=== PATIENT | male | born 1975 | race Caucasian/White ===

== ENCOUNTER 2017-08-25 22:36 | Observation (INO) | payer OTHER ==
[~2017-08-25] VITALS: Ht 172.7 cm; Wt 91.8 kg
[2017-08-26] VITALS (12 sets, daily range): BP systolic 100–136; BP diastolic 60–82; PULSE 68–81; TEMP 36.3–36.9; O2SAT 91–97; Ht 172.7 cm; Wt 91.8 kg
[2017-08-26] MEDS ORDERED: LORAZEPAM 2 MG/ML 1 ML VIAL IV PRN (01:45)
[2017-08-26] MEDS ORDERED: PROCHLORPERAZINE INJ 5 MG in SYRINGE 4 ML IV PRN (01:45)
[2017-08-26] MEDS ORDERED: GLUCOSE 40% GEL 15 GM TUBE PO PRN (01:45)
[2017-08-26] MEDS ORDERED: TRAMADOL HCL 50 MG TAB PO PRN (01:45)
[2017-08-26] MEDS ORDERED: GLUCOSE 10 TABS/TUBE PO PRN (01:45)
[2017-08-26] MEDS ORDERED: GLUCAGON FOR INJ 1 MG VIAL SQ PRN (01:45)
[2017-08-26] MEDS ORDERED: DEXTROSE 50% 50 ML SYR IV PRN (01:45)
[2017-08-26] MEDS ORDERED: LACTATED RINGER'S 1000ML 1,000 ML IV SCH (01:45)
[2017-08-26] MEDS ORDERED: ACETAMINOPHEN 325 MG TAB PO PRN (01:45)
[2017-08-26] MEDS ORDERED: ENOXAPARIN 40 MG/0.4 ML SYR SQ SCH (01:45)
[2017-08-26] MEDS ORDERED: GLIM4TAB2 PO (01:51)
[2017-08-26] MEDS ORDERED: NAPR1TAB9 PO (01:51)
[2017-08-26] MEDS ORDERED: GLIP10TA9 PO (01:53)
[2017-08-26] MEDS ORDERED: METF500T5 PO (01:54)
[2017-08-26] MEDS ORDERED: LSN25 PO (01:54)
[2017-08-26] MEDS ORDERED: TRMCR130WC TOP (01:55)
[2017-08-26] MEDS ORDERED: SITA100T3 PO (01:55)
[2017-08-26] MEDS ORDERED: PATIENT'S HEIGHT AND/OR WEIGHT NEEDED SCH (02:00)
[2017-08-26] MEDS ORDERED: INSULIN ASPART 100 UNITS/ML 3 ML PEN SC ONE (02:00)
[2017-08-26] MEDS ORDERED: LORAZEPAM INJ 0.5 MG in SYRINGE 0.75 ML IV PRN (02:00)
[2017-08-26] MEDS ORDERED: MAGNESIUM SULFATE 1GM / D5W 1 GM in PREMIXED IN D5W 100 ML IV ONE (02:00)
[2017-08-26] MEDS ORDERED: IV FLUIDS COMPLETED PRN (03:30)
--- NOTE | 2017-08-26 03:47 | Surgery Consultation ---
Consultation Date of Consultation: Aug 26, 2017. Attending Physician: Nasir Tamez M.D. Reason for Consultation: Appendicitis History of Present Illness Patient is a 41M who presents to [facility] on direct admission from [facility] due to abdominal pain starting yesterday 08/25/17 at 0600. Patient states the pain began in the left side of his abdomen and he has had associated nausea as well. Denies vomiting. Reports he now has pain in his RLQ as well as his LUQ. Reports he has had on and off fevers as well since the onset of his pain. He has been moving his bowels and urinating without issue. He was transferred to this facility due to a WBC count of 19.[address] findings showing a dilated appendix at 1.3 cm and mild inflammatory changes, no abscess or perforation. CT also showed findings of moderate to severe fecal retention in his colon without free air, free fluid or dilated small bowel loops. Fecal retention could be contributing to his left sided pain. PSHx significant for tonsillectomy. Denies any other surgeries in the past. He is a diabetic but denies any other medical issues. He last ate yesterday morning without issue. Denies use of any blood thinning or anticoagulant medications. Patient did receive a dose of antibiotics at [facility] at 11pm 08/25/17. Social History Smoking Status: Unknown if Ever Smoked Allergies Coded Allergies: BEE STING (Verified Allergy, Unknown, ANAPHYLAXIS, 08/26/17) Hydromorphone (Verified Adverse Reaction, Mild, 0, 08/26/17) nv Home Medications Scheduled Glimepiride (Glimepiride), 1 TAB PO DAILY Glipizide (Glucotrol), 10 MG PO BID Lisinopril (Lisinopril), 2.5 MG PO DAILY Metformin Hcl Er (Glucophage Er), 2 TAB PO DAILY Naproxen (Aleve), 220 MG PO DAILY Sitagliptin Phosphate (Januvia), 100 MG PO DAILY Triamcinolone Acet (Aristocort 0.1%), 1 APPLN TOP BID Current Inpatient Medications Current Inpatient Medications Medications (Trade) Dose Ordered Sig/Yudi Route Start Time Stop Time Status Last Admin Dose Admin Enoxaparin Sodium (Lovenox Inj) 40 mg Q24H SQ 08/26/17 01:45 09/25/17 01:44 UNV Acetaminophen (Tylenol Tab) 650 mg Q4H PRN PO 08/26/17 01:45 09/25/17 01:44 Tramadol HCl (Ultram Tab) not relieved by tylenol @ Q6H PRN PO 08/26/17 01:45 09/25/17 01:44 Prochlorperazine Edisylate 5 mg/ Syringe 5 ml @ 5 mls/min Q6H PRN IV 08/26/17 01:45 09/25/17 01:44 Morphine Sulfate (MoRPHine SULFATE INJ) 4 mg Q6H PRN IV 08/26/17 01:45 09/09/17 01:44 Lorazepam (Ativan Inj) 0.5 mg Q4H PRN IV 08/26/17 01:45 09/25/17 01:44 Lactated Ringer's 1,000 ml @ 75 mls/hr [id number] IV 08/26/17 01:45 09/25/17 01:44 08/26/17 02:27 75 MLS/HR Insulin Aspart (novoLOG ASPART) SLIDING SCALE If C... ACHS SC 08/26/17 06:30 09/25/17 06:29 Glucose (Glucose 40% Gel) 15-30 GRAMS 15 GRAMS... UD PRN PO 08/26/17 01:45 09/25/17 01:44 Glucose (Glucose Chew Tab) 4-8 Tablets 4 Tabl... UD PRN PO 08/26/17 01:45 09/25/17 01:44 Dextrose (Dextrose 50% 50ML Syringe) 25-50ML OF 50% DW IV FOR... UD PRN IV 08/26/17 01:45 09/25/17 01:44 Glucagon (Glucagon Inj) 1 mg UD PRN SQ 08/26/17 01:45 09/25/17 01:44 Lorazepam 0.5 mg/ Syringe 1 ml @ 1 mls/min Q4H PRN IV 08/26/17 02:00 09/25/17 01:59 Miscellaneous Information (Patient'S Height And/Or Weight Needed) 1 ea Q2H N/A 08/26/17 02:00 09/25/17 01:59 Miscellaneous (Iv Fluids Completed) 1 ea PRN PRN N/A 08/26/17 03:30 08/26/18 03:29 UNV Review of Systems Constitutional: + fever, No chills Respiratory: No cough, No shortness of breath Cardiovascular: No chest pain Abdomen: + pain (LUQ, RLQ), + nausea, No vomiting, No diarrhea, No constipation Genitourinary - Male: No hematuria, No dysuria Integumentary: No new/changing skin lesions, No color change Physical Exam Date Time Temp Pulse Resp B/P (MAP) Pulse Ox O2 Delivery O2 Flow Rate FiO2 08/26/17 01:57 36.3 81 18 116/75 Room Air 08/26/17 00:30 36.3 81 18 116/75 (89) 97 Room Air patient resting in bed with at bedside. General Appearance: WD/WN, no apparent distress Head: normocephalic, atraumatic ENT: hearing grossly normal Neck: trachea midline Respiratory/Chest: lungs clear, no respiratory distress, no accessory muscle use Cardiovascular: regular rate, rhythm, no gallop, no murmur Abdomen/GI: soft, no organomegaly, no pulsatile mass, + tenderness (moderate TTP in LUQ and RLQ. Mild TTP in LLQ) Neurologic/Psych: alert, normal mood/affect, oriented x 3 Skin: normal color, warm/dry Laboratory Results Last 24 Hours Test 08/26/17 02:05 Bedside Glucose 158 mg/dl Assessment & Plan Appendicitis Source of pain most likely due to appendicitis given elevated white count, RLQ pain and dilated appendix with mild inflammatory changes on CT. Plan for laparoscopic appendectomy, possible open with Dr. Ghosh in the OR this AM. Risks, benefits, alternatives to the procedure were discussed with the patient - all questions answered. NPO, IV Fluids, IV Mefoxin 2g Q6H first dose at 0500, pain medication prn, zofran prn, SCDs. OR Notified. Please contact with questions or concerns.
[2017-08-26] MEDS ORDERED: ONDANSETRON INJ 2 MG/ML 2 ML VIAL IV PRN ×3 (04:00→12:15)
[2017-08-26] MEDS ORDERED: CEFOXITIN IV 2,000 MG in DEXTROSE 5% 50ML 50 ML IV SCH (05:00)
[2017-08-26 06:06] LABS: BASO % 0.4 %; BASO ABS # 0.06 K/uL (0-0.2); EOS % 0.6 %; EOS ABS # 0.09 K/uL (0-0.5); HEMATOCRIT 38.2 % (42-52); HEMOGLOBIN 13.5 g/dL (14.0-18.0); IG# 0.05 K/uL (0.00-0.02); LYMPH % 20.5 %; LYMPH ABS # 3.17 K/uL (1.2-3.4); MEAN CELL VOLUME 85.5 fL (80-100); MEAN CORPUSCULAR HEMOGLOBIN 30.2 pg (25-34); MEAN CORPUSCULAR HGB CONC 35.3 g/dl (32-36); MEAN PLATELET VOLUME 9.8 fL (7.4-10.4); MONO ABS # 0.92 K/uL (0.11-0.59); NEUT % 72.2 %; NEUT ABS # 11.14 K/uL (1.4-6.5); PLATELET COUNT 214 K/uL (130-400); RED CELL DISTRIBUTION WIDTH CV 12.7 % (11.5-14.5); RED CELL DISTRIBUTION WIDTH SD 39.4 fL (36.4-46.3); WHITE BLOOD COUNT 15.43 K/uL (4.8-10.8)
[2017-08-26] MEDS: MoRPHine SULFATE 4 MG/ML 1 ML CARP\\VIAL IV PRN ×2 (06:27→13:19)
[2017-08-26 06:29] LABS: CALCIUM 8.7 mg/dl (8.5-10.1); CREATININE 1.25 mg/dl (0.60-1.40); POTASSIUM 3.9 mmol/L (3.5-5.1)
--- NOTE | 2017-08-26 06:29 | HISTORY & PHYSICAL EXAMINATION ---
DATE OF ADMISSION: 08/26/2017 CHIEF COMPLAINT: abdominal pain. HISTORY OF PRESENT ILLNESS: History obtained from the patient and records. Medical history significant for DM2 on oral meds, HTN. Yesterday morning, the patient woke up with achy left-sided abdominal pain, some nausea. No vomiting. Some chills. Patient seen at [facility]. Initial CT abdomen and pelvis showed borderline dilated appendix, minimal surrounding inflammatory change, possible appendicitis. Patient later on noticed pain going to the right side. Patient received Invanz at [facility]. Patient requested transfer to [facility] for surgical evaluation. MEDICAL HISTORY: As above. SURGERIES: Tonsillectomy. HOME MEDICATIONS: Include glimepiride and metformin. ALLERGIES: BEE STINGS. FAMILY HISTORY: History of diabetes. PERSONAL AND SOCIAL HISTORY: Nonsmoker. Occasional alcohol beverage intake, light truck driver REVIEW OF SYSTEMS: As per HPI, all 10 systems reviewed. All other ROS negative. PHYSICAL EXAMINATION: VITAL SIGNS: Blood pressure was noted to be 116/78, pulse 81, RR 18, temperature 36.3, and sats 97 on room air. GENERAL: Noted to be comfortable, no respiratory distress, obese. SKIN: Normal color, warm. HEENT: [place] palpebral conjunctivae. No ptosis. Dry mucosa. NECK: Short, nontender. CHEST: Decreased effort. No tenderness. HEART: Regular rate and rhythm. No murmur. ABDOMEN: Hypogastric tenderness. Some distention. EXTREMITIES: No edema. No gross deformity. No tenderness NEUROLOGIC: Coherent, no gross focality. LABORATORY DATA: From [facility], 08/25/2017, hemoglobin 15, hematocrit 45, white cell count 19, and platelets 271. Sodium 147, potassium 4, chloride 99, CO2 of 29, BUN 50, creatinine 0.9, and glucose 158. Mag was 1.7. Hemoglobin A1c June 2017 was noted to be 9. UA, ketones ASSESSMENT: 1. Abdominal pain possible appendicitis on initial CT. No sepsis. 2. Hypertension, stable. Not on meds currently. JERMAN inhibitor recommended by PCP as per outpatient records. 3. DM2, on oral meds suboptimal control as of recent A1c. 4. Hypomagnesemia. PLAN: Observation. GMF analgesia. N.p.o. sips until seen by Surgery. replace mag. ISS BG goal 140-180. May need basal insulin to attain goal. DVT prophylaxis, Lovenox subQ. Full code. MTDD
[2017-08-26] MEDS: INSULIN ASPART 100 UNITS/ML 3 ML PEN SC SCH ×4 (06:30→20:45)
[2017-08-26] MEDS ORDERED: LISINOPRIL 2.5 MG TAB PO SCH (08:00)
[2017-08-26] MEDS ORDERED: LABETALOL HCL IV 5 MG/ML 20ML IV PRN (09:00)
[2017-08-26] MEDS ORDERED: FLUMAZENIL 0.1 MG/1 ML 10 ML VIAL IV PRN (09:00)
[2017-08-26] MEDS ORDERED: PHENYLEPHRINE 100MCG/ML 5ML SYR IV PRN (09:00)
[2017-08-26] MEDS ORDERED: FENTANYL CITRATE INJ 50 MCG/1 ML 2 ML VIAL IV PRN (09:00)
[2017-08-26] MEDS ORDERED: EpHEDrine SULFATE INJ 50 MG/ML AMP IV PRN (09:00)
[2017-08-26] MEDS ORDERED: MEPERIDINE HCL 25 MG/ML CARP IV PRN (09:00)
[2017-08-26] MEDS ORDERED: HYDROmorphone INJ 2 MG/ML SYR/VIAL IV PRN (09:00)
[2017-08-26] MEDS ORDERED: ATROPINE SULFATE 0.1 MG/ML 5ML SYR IV PRN (09:00)
[2017-08-26] MEDS ORDERED: NALOXONE HCL 0.4 MG/1 ML VIAL/CARP IV PRN (09:00)
[2017-08-26] MEDS ORDERED: FENTANYL CITRATE INJ 50 MCG/1 ML 2 ML VIAL ONE ×2 (09:18→11:15)
[2017-08-26] MEDS ORDERED: MIDAZOLAM HCL 1 MG/ML 2ML VIAL ONE (09:18)
[2017-08-26] MEDS ORDERED: BUPIVACAINE/EPINEPHRINE 0.5% MPF 1:200,000 30 ML VIAL ONE (10:00)
[2017-08-26] MEDS ORDERED: CEFAZOLIN SOD 2000MG/15 ML IV PUSH IV ONE (10:34)
--- NOTE | 2017-08-26 10:39 | History & Physical Bridge Note ---
H&P Re-Evaluation Bridge Note: I have examined the patient, reviewed the History & Physical and in the interval since the performance of the History & Physical I have noted the following changes of clinical significance: No changes noted. pt seen/chart reviewed. suspect he does have appendicitis. the pain has now fully localized the RLQ. discussed options/risks ( bleeding/infection/leaks/dvt/pe/injury to other organs etc..). questions answered. ok to proceed.
[2017-08-26] MEDS ORDERED: GLYCOPYRROLATE INJ 0.2 MG/ML VIAL ONE ×2 (11:35→11:45)
[2017-08-26] MEDS ORDERED: PROPOFOL IV EMULSION 10 MG/ML 20 ML VIAL IV ONE (11:35)
[2017-08-26] MEDS ORDERED: LIDOCAINE HCL 2% 2 ML VIAL (20MG/ML) ONE (11:35)
[2017-08-26] MEDS ORDERED: ONDANSETRON INJ 2 MG/ML 2 ML VIAL ONE (11:35)
[2017-08-26] MEDS ORDERED: DEXAMETHASONE SOD INJ 4 MG/ML VIAL ONE (11:35)
[2017-08-26] MEDS ORDERED: NEOSTIGMINE METHYLSULFATE 5 MG/5 ML SYR ONE (11:35)
[2017-08-26] MEDS ORDERED: ROCURONIUM BROMIDE 10 MG/ML 5 ML VIAL IV ONE (11:35)
[2017-08-26] MEDS ORDERED: KETOROLAC TROMETHAMINE 30 MG/ML VIAL ONE (11:39)
--- NOTE | 2017-08-26 11:41 | [facility] Post Operative Brief Note ---
Immediate Operative Summary Operative Date Aug 26, 2017. Pre-Operative Diagnosis Acute appendicitis Post-Operative Diagnosis Same as preop Procedure(s) Performed Laparoscopic Appendectomy Surgeon Dr. Ghosh Math Specialist Surgeon(s) Ekaterina Nguyen PA-C Estimated Blood Loss 5 cc Findings Consistent with Post-Op Diagnosis Specimens A: appendix Anesthesia Type General
--- NOTE | 2017-08-26 11:51 | [facility] Operative Report ---
Operative Report Operative Date Aug 26, 2017. Pre-Operative Diagnosis Acute appendicitis Post-Operative Diagnosis Same as preop Procedure(s) Performed Laparoscopic Appendectomy Surgeon Dr. Ghosh Customer Security Clerk Surgeon(s) Ekaterina Ngyuen PA-C Estimated Blood Loss 5 cc Specimens A: appendix Anesthesia Type General Description of Procedure After informed consent was obtained the patient was taken to the operating room and placed in supine position. After successful intubation a Serra catheter was placed and the left arm was tucked. A Serra catheter was inserted sterilely. I began by making a periumbilical incision with an 11 blade scalpel and carried this down through the soft tissue using electrocautery. The anterior rectus fascia was opened using electrocautery and 2 #0 Vicryl stay sutures were placed. The peritoneum was elevated using hemostats and incised under direct vision using a Metzenbaum scissor. A finger sweep was performed. A 12 mm Schwab trocar was placed and the abdomen was insufflated to 18 mmHg. A laparoscope was inserted and the abdomen was examined in 360. A suprapubic 5 mm port and a left lower quadrant 12 mm port were placed under direct vision. The patient was air planed to the left as well as placed in a slight Trendelenburg position. We began by looking in the right lower quadrant. We were able to readily identify the appendix and it was grossly inflamed. It had not perforated. There is a small amount of purulent fluid in the right lower quadrant and the pelvis. We immediately irrigated and suctioned this out. I was able to use primarily blunt dissection to pull the appendix away from the right lower quadrant sidewall. I was then able to use a KATIE brown cartridge stapler to transect both the mesentery of the appendix as well as the appendix itself at its base with the cecum. It was then placed into an Endo Catch bag and removed from the camera port site. We thoroughly irrigated the right lower quadrant as well as the pelvis. There was adequate hemostasis. I ran the small bowel backwards from the terminal ileum for about 6 feet all of which was normal. All the peritoneal surfaces were normal. Small/ large bowel, liver, stomach etc. all appeared grossly normal. We did a final irrigation and then removed all the trochars and desufflated the abdomen. The fascia of the camera port as well as the left lower quadrant were closed using 0 Vicryl in figure-of- eight fashion. Wounds were all irrigated and closed using 4-0 Monocryl. Marcaine was injected around them for postoperative analgesia and skin glue used as a dressing. The patient was awakened extubated and transferred to recovery in stable condition. My physician's assistant floor covering printer was present through the entire case. She assisted with prepping the patient and helped with exposure for port placement, helped run the camera and helped with fascial/wound closure at the end of the procedure as well as dressing placement. I attest to the content of the Intraoperative Record and any orders documented therein. Any exceptions are noted below.
[2017-08-26] MEDS ORDERED: MoRPHine SULFATE 2 MG/ML CARP IV PRN ×3 (12:15)
[2017-08-26] MEDS ORDERED: HYDROCODONE/ACETAMIN 5/325MG TAB PO PRN (12:15)
--- NOTE | 2017-08-26 12:49 | Anesthesiology Progress Note ---
Anesthesia Post Op Note Date & Time Aug 26, 2017 at 12:49 Vital Signs Pain Intensity: 4 Vital Signs Past 12 Hours Date Time Temp Pulse Resp B/P (MAP) Pulse Ox O2 Delivery O2 Flow Rate FiO2 08/26/17 12:35 36.2 57 16 101/72 99 Nasal Cannula 4 08/26/17 12:25 60 16 100/70 99 Nasal Cannula 4 08/26/17 12:15 67 16 122/65 98 Nasal Cannula 4 08/26/17 12:05 61 16 105/71 95 Nasal Cannula 4 08/26/17 11:59 36.4 70 16 105/77 96 Oxymask 10 08/26/17 08:11 94 Room Air 08/26/17 08:00 94 Room Air 08/26/17 07:54 36.9 72 14 136/82 (100) 94 Room Air 08/26/17 01:57 36.3 81 18 116/75 Room Air Notes Mental Status: alert / awake / arousable, participated in evaluation Pt Amnestic to Procedure: Yes Nausea / Vomiting: adequately controlled Pain: adequately controlled Airway Patency, RR, SpO2: stable & adequate BP & HR: stable & adequate Hydration State: stable & adequate Anesthetic Complications: no major complications apparent
[2017-08-26] MEDS: LACTATED RINGER'S 1000ML 1,000 ML IV SCH ×2 (13:06→20:03)
--- NOTE | 2017-08-26 15:36 | Progress Note ---
Internal Med Progress Note Date of Service: Aug 26, 2017. Provider Documentation: SUBJECTIVE: Seen and examined post OP Abd pain is controlled Denies chest pain, SOB, dizziness, nausea No BM yet Family at bedside No other complaints OBJECTIVE: Vital Signs-as noted below Physical Exam: General Appearance:Moderately built and nourished, no apparent distress Head: normocephalic, Atraumatic Eyes: normal inspection, EOMI, PERRL Neck: supple, Trachea midline Respiratory/Chest: Normal breath sounds, CTA Cardiovascular: S1, S2, No murmur Abdomen/GI:Soft, Non tender, Bowel sounds present, + Surgical scars noted Extremities/Musculoskelatal:normal inspection, no edema Neurologic/Psych:AAOX3, grossly no focal neurological deficits Skin: normal color, warm Lab data as noted below. ASSESSMENT & PLAN: Acute Appendicitis S/P Laparoscopic Appendectomy POD # 0 Pain is controlled Appreciate Surgery help Monitor for Post Op anemia IV fluids Hypertension: stable monitor Not on meds currently DM II: A1c around 8.0 per patient Continue current meds Monitor BGs Hypomagnesemia. resolved monitor DVT px: SCDs Code Status: Full code Disposition: Likely discharge home tomorrow if stable Vital Signs: Date Time Temp Pulse Resp B/P (MAP) Pulse Ox O2 Delivery O2 Flow Rate FiO2 08/26/17 16:01 36.5 78 18 106/66 (79) 91 Room Air 08/26/17 15:25 Room Air 08/26/17 15:06 36.9 74 16 102/62 (75) 96 Nasal Cannula 2.0 08/26/17 14:00 36.8 74 16 109/70 (83) 96 Nasal Cannula 2.0 08/26/17 13:32 96 Nasal Cannula 4.0 08/26/17 13:32 Nasal Cannula 4.0 08/26/17 13:30 36.4 68 16 100/60 (73) 96 Nasal Cannula 4.0 08/26/17 12:35 36.2 57 16 101/72 99 Nasal Cannula 4 08/26/17 12:25 60 16 100/70 99 Nasal Cannula 4 08/26/17 12:15 67 16 122/65 98 Nasal Cannula 4 08/26/17 12:05 61 16 105/71 95 Nasal Cannula 4 08/26/17 11:59 36.4 70 16 105/77 96 Oxymask 10 08/26/17 08:11 94 Room Air 08/26/17 08:00 94 Room Air 08/26/17 07:54 36.9 72 14 136/82 (100) 94 Room Air 08/26/17 01:57 36.3 81 18 116/75 Room Air 08/26/17 00:30 36.3 81 18 116/75 (89) 97 Room Air Lab Results: Results Past 24 Hours Test 08/26/17 02:05 08/26/17 05:45 08/26/17 06:02 08/26/17 12:07 Range/Units Bedside Glucose 158 153 146 70-99 mg/dl White Blood Count 15.43 4.8-10.8 K/uL Red Blood Count 4.47 4.7-6.1 M/uL Hemoglobin 13.5 14.0-18.0 g/dL Hematocrit 38.2 42-52 % Mean Corpuscular Volume 85.5 80-100 fL Mean Corpuscular Hemoglobin 30.2 25-34 pg Mean Corpuscular Hemoglobin Concent 35.3 32-36 g/dl Platelet Count 214 130-400 K/uL Mean Platelet Volume 9.8 7.4-10.4 fL Neutrophils (%) (Auto) 72.2 % Lymphocytes (%) (Auto) 20.5 % Monocytes (%) (Auto) 6.0 % Eosinophils (%) (Auto) 0.6 % Basophils (%) (Auto) 0.4 % Neutrophils # (Auto) 11.14 1.4-6.5 K/uL Lymphocytes # (Auto) 3.17 1.2-3.4 K/uL Monocytes # (Auto) 0.92 0.11-0.59 K/uL Eosinophils # (Auto) 0.09 0-0.5 K/uL Basophils # (Auto) 0.06 0-0.2 K/uL RDW Standard Deviation 39.4 36.4-46.3 fL RDW Coefficient of Variation 12.7 11.5-14.5 % Immature Granulocyte % (Auto) 0.3 % Immature Granulocyte # (Auto) 0.05 0.00-0.02 K/uL Sodium Level 139 136-145 mmol/L Potassium Level 3.9 3.5-5.1 mmol/L Chloride Level 102 98-107 mmol/L Carbon Dioxide Level 29 21-32 mmol/L Anion Gap 8.0 3-11 mmol/L Blood Urea Nitrogen 13 7-18 mg/dl Creatinine 1.25 0.60-1.40 mg/dl Est Creatinine Clear Calc Drug Dose 86.4 ml/min Estimated GFR () 83.0 Estimated GFR (Non- 71.6 BUN/Creatinine Ratio 10.2 10-20 Random Glucose 144 70-99 mg/dl Calcium Level 8.7 8.5-10.1 mg/dl Magnesium Level 2.1 1.8-2.4 mg/dl
[2017-08-26] MEDS ORDERED: CEFAZOLIN IV 2,000 MG in SYRINGE 0 ML IV SCH (19:00)
[2017-08-26] MEDS ORDERED: INSULIN GLARGINE SOLOSTAR 100 UNITS/ML 3 ML PEN SC ONE (19:34)
[2017-08-26] MEDS: HYDROCODONE/ACETAMIN 5/325MG TAB PO PRN (19:41)
[2017-08-26] MEDS: TRIAMCINOLONE ACET 0.1% CR 15 GM TUBE EXT SCH (20:47)
[2017-08-26] MEDS ORDERED: NURSING VERBAL MED ORDER ONE (21:15)
[2017-08-27] MEDS: HYDROCODONE/ACETAMIN 5/325MG TAB PO PRN ×2 (01:28→07:24)
[2017-08-27 03:38] VITALS: BP 101/65; PULSE 70; TEMP 36.6; O2SAT 96
[2017-08-27 06:02] LABS: BASO % 0.1 %; BASO ABS # 0.02 K/uL (0-0.2); EOS % 0.3 %; EOS ABS # 0.04 K/uL (0-0.5); HEMATOCRIT 37.8 % (42-52); HEMOGLOBIN 13.1 g/dL (14.0-18.0); IG# 0.05 K/uL (0.00-0.02); LYMPH % 18.6 %; LYMPH ABS # 2.53 K/uL (1.2-3.4); MEAN CELL VOLUME 87.5 fL (80-100); MEAN CORPUSCULAR HEMOGLOBIN 30.3 pg (25-34); MEAN CORPUSCULAR HGB CONC 34.7 g/dl (32-36); MEAN PLATELET VOLUME 10.3 fL (7.4-10.4); MONO % 7.9 %; MONO ABS # 1.07 K/uL (0.11-0.59); NEUT % 72.7 %; NEUT ABS # 9.91 K/uL (1.4-6.5); PLATELET COUNT 224 K/uL (130-400); RED CELL DISTRIBUTION WIDTH CV 12.5 % (11.5-14.5); RED CELL DISTRIBUTION WIDTH SD 40.6 fL (36.4-46.3); WHITE BLOOD COUNT 13.62 K/uL (4.8-10.8)
--- NOTE | 2017-08-27 06:26 | Surgery Progress Note ---
Surgery Progress Note Date of Service Aug 27, 2017. Subjective Post OP Day: 1 + feeling well, + ambulating, + flatus, + pain controlled, + diet (Tolerating Regular DM II diet), No complaints, No bowel movement, No nausea, No vomiting Objective Vital Signs: Date Time Temp Pulse Resp B/P (MAP) Pulse Ox O2 Delivery O2 Flow Rate FiO2 08/27/17 03:38 36.6 70 16 101/65 (77) 96 Room Air 08/27/17 00:40 Room Air 08/26/17 23:20 36.5 77 18 113/61 (78) 95 Room Air 08/26/17 19:21 36.5 71 18 109/66 (80) 91 Room Air 08/26/17 16:01 36.5 78 18 106/66 (79) 91 Room Air 08/26/17 15:25 Room Air 08/26/17 15:06 36.9 74 16 102/62 (75) 96 Nasal Cannula 2.0 08/26/17 14:00 36.8 74 16 109/70 (83) 96 Nasal Cannula 2.0 08/26/17 13:32 96 Nasal Cannula 4.0 08/26/17 13:32 Nasal Cannula 4.0 08/26/17 13:30 36.4 68 16 100/60 (73) 96 Nasal Cannula 4.0 08/26/17 12:35 36.2 57 16 101/72 99 Nasal Cannula 4 08/26/17 12:25 60 16 100/70 99 Nasal Cannula 4 08/26/17 12:15 67 16 122/65 98 Nasal Cannula 4 08/26/17 12:05 61 16 105/71 95 Nasal Cannula 4 08/26/17 11:59 36.4 70 16 105/77 96 Oxymask 10 08/26/17 08:11 94 Room Air 08/26/17 08:00 94 Room Air 08/26/17 07:54 36.9 72 14 136/82 (100) 94 Room Air General Appearance: WD/WN, no apparent distress Head: normocephalic, atraumatic Respiratory/Chest: no respiratory distress, no accessory muscle use Abdomen: non distended, soft, no organomegaly, no pulsatile mass, + tenderness (Mild umbilical incision TTP) Incision(s): clean, dry, intact, no erythema, no drainage Laboratory Results: Results Past 24 Hours Test 08/26/17 12:07 08/26/17 16:29 08/26/17 20:17 08/27/17 05:12 Range/Units Bedside Glucose 146 236 195 70-99 mg/dl White Blood Count 13.62 4.8-10.8 K/uL Red Blood Count 4.32 4.7-6.1 M/uL Hemoglobin 13.1 14.0-18.0 g/dL Hematocrit 37.8 42-52 % Mean Corpuscular Volume 87.5 80-100 fL Mean Corpuscular Hemoglobin 30.3 25-34 pg Mean Corpuscular Hemoglobin Concent 34.7 32-36 g/dl Platelet Count 224 130-400 K/uL Mean Platelet Volume 10.3 7.4-10.4 fL Neutrophils (%) (Auto) 72.7 % Lymphocytes (%) (Auto) 18.6 % Monocytes (%) (Auto) 7.9 % Eosinophils (%) (Auto) 0.3 % Basophils (%) (Auto) 0.1 % Neutrophils # (Auto) 9.91 1.4-6.5 K/uL Lymphocytes # (Auto) 2.53 1.2-3.4 K/uL Monocytes # (Auto) 1.07 0.11-0.59 K/uL Eosinophils # (Auto) 0.04 0-0.5 K/uL Basophils # (Auto) 0.02 0-0.2 K/uL RDW Standard Deviation 40.6 36.4-46.3 fL RDW Coefficient of Variation 12.5 11.5-14.5 % Immature Granulocyte % (Auto) 0.4 % Immature Granulocyte # (Auto) 0.05 0.00-0.02 K/uL Assessment & Plan POD #1 s/p laparoscopic appendectomy pain controlled, urinating okay. Tolerating Regular DM II diet, no N/V. Probable discharge today if his pain continues to be controlled and he continues to tolerate foods. Patient given instructions for f/u appointment. Please contact with questions or concerns.
--- NOTE | 2017-08-27 06:30 | Discharge Instructions ---
Discharge Instructions Date of Service Aug 27, 2017. Admission Reason for Admission: Abdominal Pain, Possible Appendicitis Discharge Discharge Diagnosis / Problem: Appendicitis Discharge Goals Goal(s): Decrease discomfort, Improve function Activity Recommendations Activity Limitations: as noted below Lifting Limitations: no more than 10 pounds, until after follow-up appointment Exercise/Sports Limitations: until after follow-up appointment May Resume Sexual Activity: after follow-up appointment Shower/Bathe: tomorrow Driving or Machine Use: resume 3 days after discharge (Please do not drive while using narcotic pain medication) . Instructions / Follow-Up Instructions / Follow-Up You have surgical glue covering your incisions. Please allow this to fall off on its own. You have been prescribed norco to take as needed for pain relief. Please follow-up with Dr. Ghosh in 1-2 weeks. Please contact our office at to schedule an appointment if you have not done so already. Please contact our office with any further questions or concerns. [facility] [employer] [address] [place] [address]. Current Hospital Diet Patient's current hospital diet: Diabetes Type 2 Diet Discharge Diet Recommended Diet: Regular Diet Procedures Procedures Performed: Laparoscopic Appendectomy Pending Studies Studies pending at discharge: yes List of pending studies: pathology Medical Emergencies . Who to Call and When: Medical Emergencies: If at any time you feel your situation is an emergency, please call 911 immediately. . Non-Emergent Contact Non-Emergency issues call your: Primary Care Provider, Surgeon Call Non-Emergent contact if: you have a fever, temperature is above 101.5, your pain is not controlled, your pain is worsening, wound has increased drainage, wound has increased redness . "Provider Documentation" section prepared by Michael Borrego. . [place] Drug Monitoring Program Search Results: patient reviewed within database, no issues identified
[2017-08-27] MEDS ORDERED: HYDR-5688 PO (06:31)
[2017-08-27 06:40] LABS: PTT PATIENT 27.1 SECONDS (21.0-31.0)
[2017-08-27 06:49] LABS: CALCIUM 8.6 mg/dl (8.5-10.1); CREATININE 0.81 mg/dl (0.60-1.40); POTASSIUM 3.8 mmol/L (3.5-5.1)
--- NOTE | 2017-08-27 07:40 | Anesthesiology Progress Note ---
Anesthesia Post Op Note Date & Time Aug 27, 2017 at 07:39 Vital Signs Pain Intensity: 6.0 Vital Signs Past 12 Hours Date Time Temp Pulse Resp B/P (MAP) Pulse Ox O2 Delivery O2 Flow Rate FiO2 08/27/17 03:38 36.6 70 16 101/65 (77) 96 Room Air 08/27/17 00:40 Room Air 08/26/17 23:20 36.5 77 18 113/61 (78) 95 Room Air Notes Mental Status: alert / awake / arousable, participated in evaluation Pt Amnestic to Procedure: Yes Nausea / Vomiting: adequately controlled Pain: adequately controlled Airway Patency, RR, SpO2: stable & adequate BP & HR: stable & adequate Hydration State: stable & adequate Anesthetic Complications: no major complications apparent
[2017-08-27] MEDS ORDERED: NON-FORMULARY MEDICATION (Glimepiride 1 TAB) PO SCH (08:00)
[2017-08-27] MEDS ORDERED: SITAGLIPTIN 100 MG TAB PO SCH (08:00)
[2017-08-27 08:11] VITALS: BP 118/71; PULSE 76; TEMP 36.7; O2SAT 95
[2017-08-27] MEDS: LACTATED RINGER'S 1000ML 1,000 ML IV SCH (08:29)
[2017-08-27] MEDS: TRIAMCINOLONE ACET 0.1% CR 15 GM TUBE EXT SCH (08:32)
[2017-08-27] MEDS: INSULIN ASPART 100 UNITS/ML 3 ML PEN SC SCH (08:34)
[2017-08-27 09:42] VITALS: BP 118/71; PULSE 76; TEMP 36.7; O2SAT 95
--- NOTE | 2017-08-27 11:23 | Progress Note ---
Progress Note Date of Service Aug 27, 2017. Progress Note Patient not seen as patient got discharged.
--- NOTE | 2017-08-27 11:24 | Discharge Summary ---
Discharge Summary Date of Service Aug 27, 2017. Discharge Summary Admission Date: Aug 26, 2017 at 00:30 Discharge Date: Aug 27, 2017 Discharge Disposition: Home Principal Diagnosis: Acute Appendicitis S/P Laparoscopic Appendectomy Consultations: Surgery Pending Studies/Follow-Up: Follow up with PCP and Surgery Medication Reconciliation New Medications: Hydrocodone/Acetaminophen 5MG/325MG ([place] 5MG/325MG) Tab 1-2 TABLET PO Q4H PRN for Pain for 3 Days, #20 TAB Continued Medications: Glimepiride (Glimepiride) 4 Mg Tab 1 TAB PO DAILY, #90 TAB 3 Refills Glipizide (Glucotrol) 10 Mg Tab 10 MG PO BID, TAB TAKE 30 MIN BEFORE A MEAL Lisinopril (Lisinopril) 2.5 Mg Tab 2.5 MG PO DAILY Metformin Hcl Er (Glucophage Er) 500 Mg Tab 2 TAB PO DAILY for 90 Days, #360 TAB 3 Refills Naproxen (Aleve) 220 Mg Tab 220 MG PO DAILY, TAB Sitagliptin Phosphate (Januvia) 100 Mg Tab 100 MG PO DAILY, TAB Triamcinolone Acet (Aristocort 0.1%) 90 Appln/30 Gm Cr 1 APPLN TOP BID APPLY TO AFFECTED AREA Admission Information HPI (per Admitting provider): CHIEF COMPLAINT: abdominal pain. HISTORY OF PRESENT ILLNESS: History obtained from the patient and records. Medical history significant for DM2 on oral meds, HTN. Yesterday morning, the patient woke up with achy left-sided abdominal pain, some nausea. No vomiting. Some chills. Patient seen at [facility]. Initial CT abdomen and pelvis showed borderline dilated appendix, minimal surrounding inflammatory change, possible appendicitis. Patient later on noticed pain going to the right side. Patient received Invanz at [facility]. Patient requested transfer to [facility] for surgical evaluation Physical Exam (per Admitting): PHYSICAL EXAMINATION: VITAL SIGNS: Blood pressure was noted to be 116/78, pulse 81, RR 18, temperature 36.3, and sats 97 on room air. GENERAL: Noted to be comfortable, no respiratory distress, obese. SKIN: Normal color, warm. HEENT: [place] palpebral conjunctivae. No ptosis. Dry mucosa. NECK: Short, nontender. CHEST: Decreased effort. No tenderness. HEART: Regular rate and rhythm. No murmur. ABDOMEN: Hypogastric tenderness. Some distention. EXTREMITIES: No edema. No gross deformity. No tenderness NEUROLOGIC: Coherent, no gross focality. Hospital Course Acute Appendicitis S/P Laparoscopic Appendectomy POD # 1 Pain is controlled Appreciate Surgery help Monitor for Post Op anemia Hb stable s/p IV fluids Patient is discharged by Surgery team today, Thank you for the help Hypertension: stable monitor continue usual meds DM II: A1c around 8.0 per patient Continue current meds Monitor BGs Hypomagnesemia. resolved monitor DVT px: SCDs Code Status: Full code Disposition: Discharged home today Total time spent on discharge = This includes examination of the patient, discharge planning, medication reconciliation, and communication with other providers. Discharge Instructions Discharge Instructions Date of Service Aug 27, 2017. Admission Reason for Admission: Abdominal Pain, Possible Appendicitis Discharge Discharge Diagnosis / Problem: Appendicitis Discharge Goals Goal(s): Decrease discomfort, Improve function Activity Recommendations Activity Limitations: as noted below Lifting Limitations: no more than 10 pounds, until after follow-up appointment Exercise/Sports Limitations: until after follow-up appointment May Resume Sexual Activity: after follow-up appointment Shower/Bathe: tomorrow Driving or Machine Use: resume 3 days after discharge (Please do not drive while using narcotic pain medication) . Instructions / Follow-Up Instructions / Follow-Up You have surgical glue covering your incisions. Please allow this to fall off on its own. You have been prescribed norco to take as needed for pain relief. Please follow-up with Dr. Ghosh in 1-2 weeks. Please contact our office at to schedule an appointment if you have not done so already. Please contact our office with any further questions or concerns. [facility] [address] [place] [address]. Current Hospital Diet Patient's current hospital diet: Diabetes Type 2 Diet Discharge Diet Recommended Diet: Regular Diet Procedures Procedures Performed: Laparoscopic Appendectomy Pending Studies Studies pending at discharge: yes List of pending studies: pathology Medical Emergencies . Who to Call and When: Medical Emergencies: If at any time you feel your situation is an emergency, please call 911 immediately. . Non-Emergent Contact Non-Emergency issues call your: Primary Care Provider, Surgeon Call Non-Emergent contact if: you have a fever, temperature is above 101.5, your pain is not controlled, your pain is worsening, wound has increased drainage, wound has increased redness . "Provider Documentation" section prepared by Michael Borrego. . [place] Drug Monitoring Program Search Results: patient reviewed within database, no issues identified <Electronically signed by Michael Borrego PA-C> <Electronically signed by Hernán Ghosh D.O.> Signed: 08/27/17 0630 Signed: 08/27/17 0702 The status of this report is Signed * If report status is Draft, the document has not been finalized by the responsible provider.
[2017-08-27] MEDS ORDERED: INSULIN GLARGINE SOLOSTAR 100 UNITS/ML 3 ML PEN SC SCH (21:00)
== END 2017-08-27 10:19 | disposition home or self-care (01) ==
LOC: C.4E 08-26 00:30 → ENRESERV 08-26 12:40 → C.MSW 08-26 13:20
PROVIDERS: ADMIT Internal Medicine; ATTEND Internal Medicine
DX: K35.80 Unspecified acute appendicitis (principal); E11.9 Type 2 diabetes mellitus without complications; I10 Essential (primary) hypertension; Z79.84 Long term (current) use of oral hypoglycemic drugs; Z90.89 Acquired absence of other organs; Z91.030 Bee allergy status; Z83.3 Family history of diabetes mellitus; E66.9 Obesity, unspecified